=== PATIENT | female | born 1945 | race Asian ===

== ENCOUNTER 2021-01-24 11:07 | Outpatient (CLI) | payer MEDICARE | END 2021-01-24 11:08 | disposition home or self-care (01) | LOC: CSHMAMMO 11:07 | PROVIDERS: ATTEND Nurse Practitioner Adult Health | DX: Z12.31 Encounter for screening mammogram for malignant neoplasm of breast (principal) | CPT/HCPCS: 77063; 77067 ==

== ENCOUNTER 2021-04-15 06:44 | Day surgery (SDC) | payer MEDICARE ==
[2021-04-04 13:46] VITALS: BMI 27.3
[2021-04-15] MEDS ORDERED: Lidocaine 1% MPF 2 ML VIAL ONE (07:47)
[2021-04-15] MEDS ORDERED: PROPOFOL 40 ML ONE (08:53)
== END 2021-04-15 10:16 | disposition home or self-care (01) ==
LOC: CSHSDC 06:44
PROVIDERS: ATTEND Internal Medicine Gastroenterology
PROC: 0DJD8ZZ Inspection of Lower Intestinal Tract, Via Natural or Artificial Opening Endoscopic (ICD-10-PCS; principal; 2021-04-15)
DX: Z12.11 Encounter for screening for malignant neoplasm of colon (principal); Z86.010 Personal history of colon polyps; K57.30 Diverticulosis of large intestine without perforation or abscess without bleeding; K64.9 Unspecified hemorrhoids; E11.9 Type 2 diabetes mellitus without complications; I10 Essential (primary) hypertension; E78.5 Hyperlipidemia, unspecified; E03.9 Hypothyroidism, unspecified
CPT/HCPCS: J2704

== ENCOUNTER 2023-01-08 09:20 | Outpatient (CLI) | payer MEDICARE | END 2023-01-08 09:21 | disposition home or self-care (01) | LOC: CSHMAMMO 09:20 | PROVIDERS: ATTEND Internal Medicine | DX: Z12.31 Encounter for screening mammogram for malignant neoplasm of breast (principal); Z13.820 Encounter for screening for osteoporosis; M85.89 Other specified disorders of bone density and structure, multiple sites; Z78.0 Asymptomatic menopausal state | CPT/HCPCS: 77063; 77067; 77080 ==

== ENCOUNTER 2024-01-19 09:43 | Outpatient (CLI) | payer MEDICARE | END 2024-01-19 09:44 | disposition home or self-care (01) | LOC: CSHMAMMO 09:43 | PROVIDERS: ATTEND Internal Medicine | DX: Z12.31 Encounter for screening mammogram for malignant neoplasm of breast (principal) | CPT/HCPCS: 77063; 77067 ==